=== PATIENT | female | born 1965 | race Caucasian/White ===

== ENCOUNTER 2019-03-01 08:58 | Inpatient (IN) ==
--- NOTE | 2019-02-20 15:02 | History & Physical Report ---
Date of Service February 20, 2019 Assessment & Plan (1) Loose total knee arthroplasty: Treatment options were discussed with the patient. Patient has a loose tibial component. Lab results are also concerning for possible infection, however Microgen analysis and cultures were negative. Patient would like to proceed with surgery. Risks, benefits and alternatives to surgery including but not limited to infection, DVT, pain, stiffness, need for revision surgery, damage to blood vessels, damage to nerves, PE, , were discussed with the patient and they wish to proceed . Plan will be for revision left total knee arthroplasty vs removal of total knee and placement of antibiotic spacer based on results of intraoperative studies and findings. All questions were answered. Surgery was originally scheduled for 09/04/18 but cancelled due to abnormal echo. She has since had multiple cardiac studies and has now been cleared for surgery. Surgery is now scheduled for 03/01/19. We may want to consider checking a H&H immediately post operative as patient has chronic anemia, most recent hemoglobin 8.6. She will follow up post operatively. DVT prophylaxis will be aspirin 81mg BID x 28 days. Patient plans to go home with home health services upon discharge from hospital. Encounter type: subsequent encounter Laterality: left Qualified Code(s): T84.033D - Mechanical loosening of internal left knee prosthetic joint, subsequent encounter History of Present Illness Chief Complaint: Left knee pain Primary Care Provider: Gerardo Sampson Patient is a 53 year old female with PMHx signficant for RA, anemia thought to be due to chronic disease, hx of rheumatic fever as a child who presents with left knee pain. She has prior history of left total knee arthroplasty. Her original post operative course was complicated by a disruption of her medial retinaculum requiring repair. She was doing well up until recently when she sustained a fall while at work. X-rays at that time were concerning for loosening of the tibial component. Subsequently a bone scan was ordered demonstrating loosening. Blood work was ordered to rule out infection. Her CRP and sed rate were both elevated, therefore knee aspiration was performed. Analysis was negative for infection. Treatment options were discussed and she would like to proceed with scheduled surgery. Surgery was delayed due to an abnormal echo. She has since been cleared to proceed with surgery. Patient denies headaches, sweats, fevers, chills, double vision, blurred vision, cough, sore throat, dysphagia, chest pain, sob, wheezing, n/v/d/c, numbness, tingling, fatigue, urinary symptoms, mood disorders. ROS positive for left knee pain and stiffness. 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 Unknown etiology of anemia. Cardiac murmur HX-RHEUMATIC FEVER AGE 14-MITRAL REGURGITATION ON ECHO 2014 [facility] PER PT-REPEAT ECHO/STRESS END 2017 [place] PER PT Hiatal hernia Osteoarthritis Rheumatoid arthritis Saw Dr Figueroa in the past, was previously on Prednisone but has since d/c'd. Surgical History History of appendectomy History of bilateral tubal ligation History of cardiac cath 11/2018 DUE TO "SHADOW, POOR DETECTION ON ECHO-EXCESS BREAST TISSUE CAUSED POOR VISIBILITY-CATHETERIZATION HEART [place] History of colonoscopy History of esophagogastroduodenoscopy (EGD) History of herniorrhaphy History of total knee replacement LEFT 2014 [facility], no complications, well tolerated Social History Preferred Language: Latvian Communication Ability: Effective Communication Equipment Mechanic Required: No Beliefs That Will Affect Care: None Current Living Situation: Spouse and Family Other Information That Helps Us Care for You: No Feels Safe at Home: Yes Safety Concerns: Feels Safe At This Time Smoking Status: Former smoker Do You Dip or Chew Tobacco: No Smoking End Date: QUIT 2015 Second Hand Exposure: Yes (ON OCC) Hx Alcohol Use: Yes (RARELY) Alcohol type: hard liquor Hx Substance Use: No Review of Systems All systems reviewed & are unremarkable except as noted in HPI & below Physical Exam Constitutional: well developed and well nourished; no acute distress Eyes: PERRL, conjunctivae normal, anicteric sclerae ENMT: external ear and nose normal, oropharynx normal Neck: trachea midline, no thyromegaly Respiratory: normal respiratory effort, lungs clear to auscultation Cardiovascular: RRR, no murmur, no edema Musculoskeletal: Left knee-Surgical scar well healed. Stable to valgus and varus stress. Tenderness along medial and lateral joint lines. ROM 5-120 degrees. Skin: no rashes, warm and dry Neurologic: patellar DTR's 2+ bilat, sensation intact Psychiatric: A+Ox3, euthymic affect Results & Data Laboratory Results CRP-2.55, sed rate-70, WBC-7.88, Gram stain-many polys, no organisms. Culture-no growth. Synovial fluid-44,832 WBC with 93% polys, 11036 RBC. Microgen analysis was negative for infection. Hemoglobin 8.6 and hematocrit 30.4 from 02/18/19. Diagnostic Findings X-RAY Knee 3 Views LT-S/p left TKA. Questionable lucency lateral tibial plateau and tibial stem. Patella is well seated. Hardware otherwise intact. Bone Scan: Abnormal signal of tibial component indicating septic vs aseptic loosening.
--- NOTE | 2019-02-27 09:04 | Anesthesiology Consultation ---
Date of Service February 27, 2019 Assessment & Plan (1) Encounter for pre-operative examination: - PCP: 12/26/18: Aware of anemia. S/P unremarkable workup including EGD/colonoscopy. "PATIENT CLEARED FOR SURGERY." HGB stable at 8.6 on 02/18/19 (was 8.7 on 08/25/18). - Discussed with Dr. Rosario RE: anemia. He recommends rechecking CBC AM DOS and having type and cross, 2 units PRBC's on hold for AM DOS. Chart Review Chart Review: Acceptable Risk for Surgery (pending labs AM DOS) History Surgery Operation Date: 03/01/19 11:15 Proposed Procedures p Left Total Knee Arthroplasty versus Removal of Total Knee Placement of Antibiotic Spacer - Khai Dow MD Height/Weight Height: 5 ft 2 in Weight: 95.254 kg Allergies Allergy/AdvReac Type Severity Reaction Status Date / Time levofloxacin Allergy Severe RESPIRATORY Verified 01/18/19 08:33 DISTRESS Medications Home Medications Medication Instructions Recorded Confirmed Last Taken acetaminophen [Tylenol Extra 1,000 mg PO Q6H PRN 08/14/18 01/18/19 Unknown Strength] ferrous sulfate 325 mg PO BID 08/14/18 01/18/19 Unknown Past Medical History Medical History DJD (degenerative joint disease) of knee Anemia S/P 3 UNITS 11/2017; CHRONIC ANEMIA WITH UNKNOWN ETIOLOGY S/P EXTENSIVE WORKUP INCLUDING EGD/COLOSCOPY Hiatal hernia Osteoarthritis Rheumatoid arthritis Past Surgical History Surgical History History of appendectomy History of bilateral tubal ligation History of cardiac cath 11/2018= NO STENTS; "ANGIOGRAPHICALLY NORMAL CORONARY ARTERIES" History of colonoscopy History of esophagogastroduodenoscopy (EGD) History of herniorrhaphy History of total knee replacement LEFT Social History Smoking Status: Former smoker Do You Dip or Chew Tobacco: No Smoking End Date: QUIT 2015 Hx Alcohol Use: Yes (RARELY) Alcohol type: hard liquor alcohol intake frequency: holidays/special occasions only Hx Substance Use: No substance use type: does not use Testing Laboratory Results 02/18/19 WBC 6.71 H/H 8.6/30.4 PLATELETS 371 SODIUM 140 POTASSIUM 4.1 CHLORIDE 109 CO2 24.0 BUN 7.8 CREATININE 1.04 GLUCOSE 91 PT 11.9 PTT 28.6 INR 1.06 UA negative nitrie, large leuk esterase, negative blood (surgeon aware) TYPE AND SCREEN A+Ab- Electrocardiogram Date: 10/23/18 NSR at 84bpm. Septal infarct, age undetermined. Subsequent cardiac cath done 11/2018* Echocardiogram Date: 08/28/18 EF 60%. No RWMA. AV/MV sclerotic. At least moderate HI identified with 2 separate jets of regurgitation. Mild TR/PI. Stress Test Date: 10/24/18 Type: nuclear (LEXISCAN) Abnormal myocardial perfusion SPECT images with evidence for pharmacologically induced anterolateral ischemia. LVEF 73%. Subsequent cardiac cath done 11/2018* Cardiac Catheterization Date: 11/23/18 Angiographically normal coronary arteries. EF 55%. Cervical Spine Date: 08/20/18 Findings: less than 5mm instability 1. 2 mm anterolisthesis C3 on C4 and C4 on C5 resolves with extension. Correlate clinically to assess for instability. 2. Predental interval appears normal. 3. Degenerative changes about.
[~2019-03-01 08:58] MED LIST: ACETAMINOPHEN 500 MG TAB PO SCH; BUPIVACAINE 0.5 % 5 MG/1 ML PF 10ML VIAL ONE; CEFAZOLIN 2000MG 2,000 MG/15 ML SYR IV SCH; CeleBREX 200 MG CAP PO SCH; FAMOTIDINE 20 MG TAB PO SCH; GABAPENTIN 300 MG PO SCH; METOCLOPRAMIDE HCL 10 MG TABLET PO SCH; ROPIVACAINE 0.5% 5 MG/ML 30 ML VIAL ONE; ROPIVACAINE 0.5% HCL/PF 150 MG, BUPIVACAINE 0.5% MPF 30 ML, EPINEPHrine 30MG/30ML (OR U... INFIL SCH; dexAMETHasone 4 MG TAB PO SCH
[2019-03-01] MEDS: LR 500ML BOLUS, THEN 15ML/HR IV SCH ×2 (09:18→12:49)
[2019-03-01 09:30] LABS: Hematocrit (blood only) 30.8 % (37-47); Mean Corpuscular Volume 67.8 fL (80-100); Mean Platelet Volume 10.5 fL (7.4-10.4); Platelet Count 313 K/uL (130-400); RDW Coefficient of Variation 16.7 % (11.5-14.5); RDW Standard Deviation 41.4 fL (36.4-46.3); Red Blood Count 4.54 M/uL (4.2-5.4); White Blood Count 7.31 K/uL (4.8-10.8)
--- NOTE | 2019-03-01 09:31 | History & Physical Bridge Note ---
Date of Service March 01, 2019 History & Physical Bridge Note I have examined the patient, reviewed the History & Physical and in the interval since the performance of the History & Physical I have noted the following changes of clinical significance: no changes noted
[2019-03-01 09:47] LABS: Mean Corpuscular Hgb Conc 29.2 g/dL (32-36)
[2019-03-01] MEDS ORDERED: KETAMINE HCL INJ 50 MG/ML 10 ML VIAL ONE ×2 (10:20→15:30)
[2019-03-01] MEDS ORDERED: MIDAZOLAM HCL 1 MG/ML 2ML VIAL ONE ×2 (10:20→12:49)
--- NOTE | 2019-03-01 12:28 | Anesthesiology Progress Note ---
Date of Service March 01, 2019 Anesthesia Post Procedure Vital Signs Vital Signs: Temp Pulse Resp BP Pulse Ox 03/01/19 09:21 36.7 C 89 20 143/96 H 97 Pain Intensity Left Knee: Pain Intensity: 7 Transfer of Care Handoff Completed per policy Notes Mental Status: alert / awake / arousable and participated in evaluation Patient Amnestic to Procedure: Yes Nausea / Vomiting: adequately controlled Pain: adequately controlled Airway Patency, RR, SpO2: stable & adequate BP & HR: stable & adequate Hydration State: stable & adequate Anesthetic Complications: no major complications apparent
[2019-03-01] MEDS ORDERED: POVIDONE-IODINE OP SOLN 30 ML BTL ONE (13:16)
[2019-03-01] MEDS ORDERED: ORTHO JOINT ANESTHETIC ONE (13:16)
[2019-03-01] MEDS ORDERED: BACITRACIN INJ 50,000 UNIT VIAL ONE (13:16)
[2019-03-01] MEDS ORDERED: GLYCOPYRROLATE 0.2 MG/ML VIAL ONE (13:55)
[2019-03-01] MEDS ORDERED: LIDOCAINE HCL 2% 2 ML VIAL/AMP(20MG/ML) INFIL ONE (13:55)
[2019-03-01] MEDS ORDERED: ONDANSETRON INJ 2 MG/ML 2 ML VIAL ONE (13:55)
[2019-03-01] MEDS ORDERED: DEXAMETHASONE SOD INJ 4 MG/ML VIAL ONE (13:55)
[2019-03-01] MEDS ORDERED: PROPOFOL IV EMULSION 10 MG/ML 20 ML VIAL IV ONE ×3 (13:55→15:34)
[2019-03-01] MEDS ORDERED: HYDROmorphone INJ 2 MG/ML SYR/VIAL ONE (15:29)
--- NOTE | 2019-03-01 16:12 | Post Operative Brief Note ---
Immediate Post Op Note v1 Date of Surgery March 01, 2019 Pre & Post Diagnosis Operation Date: 03/01/19 11:15 Pre-Op Diagnosis: Left Knee Mechanical loosening of other internal part Post-Op Diagnosis: Left Knee Mechanical loosening of other internal part Procedure Operation Date: 03/01/19 11:15 Actual Procedures p Left Total Knee Revision Arthroplasty (Left) - Khai Dow MD Surgeon Kirk Maher DO Senior Director Marketing Khai Dow MD, Dakota Blackwell PA-C Estimated Blood Loss 50 Findings Consistent with Post-Op Diagnosis Specimens fresh frozen x 3 (suprapatellar, anterior tibia, proximal tibia culture tissue x 1 synovium culture fluid x 1 synovial Drains Hemovac Drain Anesthesia Type General Complications none Disposition Disposition: Recovery Room Overlapping Procedure I was present for: the critical portions of procedure. I was immediately available: during the entire case. Back up surgeon: was not required during procedure.
--- NOTE | 2019-03-01 16:49 | Operative Report ---
Post Operative Report Pre & Post Diagnosis Operation Date: 03/01/19 11:15 Pre-Op Diagnosis: Left Knee Mechanical loosening of other internal part Post-Op Diagnosis: Left Knee Mechanical loosening of other internal part Procedure Operation Date: 03/01/19 11:15 Actual Procedures p Left Total Knee Revision Arthroplasty (Left) - Khai Dow MD Surgeon Kirk Maher DO Oil Distributor Tender Khai Dow MD, Daokta Blackwell PA-C Estimated Blood Loss 50 Findings Consistent with Post-Op Diagnosis Specimens fresh frozen x 3 (suprapatellar, anterior tibia, proximal tibia culture tissue x 1 synovium culture fluid x 1 synovial Drains Hemovac drain deep to fascia Anesthesia Type General Indications Patient is a 53 year old female with PMHx signficant for RA, anemia thought to be due to chronic disease, hx of rheumatic fever as a child who presents with left knee pain. She has prior history of left total knee arthroplasty. Her original post operative course was complicated by a disruption of her medial retinaculum requiring repair. She was doing well up until recently when she sustained a fall while at work. X-rays at that time were concerning for loosening of the tibial component. Subsequently a bone scan was ordered demonstrating loosening. Blood work was ordered to rule out infection. Her CRP and sed rate were both elevated, therefore knee aspiration was performed. Analysis was negative for infection. Treatment options were discussed and she would like to proceed with scheduled surgery. Surgery was delayed due to an abnormal echo. She has since been cleared to proceed with surgery. Patient denies headaches, sweats, fevers, chills, double vision, blurred vision, cough, sore throat, dysphagia, chest pain, sob, wheezing, n/v/d/c, numbness, tingling, fatigue, urinary symptoms, mood disorders. ROS positive for left knee pain and stiffness. Treatment options were discussed with the patient. Patient has a loose tibial component. Lab results are also concerning for possible infection, however Microgen analysis and cultures were negative. Patient would like to proceed with surgery. Risks, benefits and alternatives to surgery including but not limited to infection, DVT, pain, stiffness, need for revision surgery, damage to blood vessels, damage to nerves, PE, , were discussed with the patient and they wish to proceed . Plan will be for revision left total knee arthroplasty vs removal of total knee and placement of antibiotic spacer based on results of intraoperative studies and findings. All questions were answered. Surgery was originally scheduled for 09/04/18 but cancelled due to abnormal echo. She has since had multiple cardiac studies and has now been cleared for surgery. Surgery is now scheduled for 03/01/19. We may want to consider checking a H&H immediately post operative as patient has chronic anemia, most recent hemoglobin 8.6. She w ill follow up post operatively. DVT prophylaxis will be aspirin 81mg BID x 28 days. Patient plans to go home with home health services upon discharge from hospital. Description of Procedure Components used: Legion Revision Knee System: Tibial tray size 4, 120mm stem with 6mm offset, 10mm augment plate, size 12 PS tibial insert. Following induction of general anesthesia, a tourniquet was applied to the proximal aspect of the thigh and the patient's left leg was prepped and draped in the usual sterile manner. A timeout was performed, patient identified and and site kelsey verified. Anesthesia confirmed preoperative antibiotics given. The limb was exsanguinated with an esmarch bandage and tourniquet was inflated to 300 mmHg. The prior incision was identified and a longitudinal midline incision was made over the anterior knee. Previous surgical scar was excised. Subcutaneous tissue was sharply dissected down to fascia. Electrocautery was used for hemostasis. Next a medial parapatellar arthrotomy was performed. A culture of synovial fluid was obtained. Meticulous removal of hypertrophic synovium and scar tissue was removed with Bovie. Synovial tissue samples were sent for fresh frozen analysis and for cultures. The patella was subluxed laterally and the knee was flexed. A lindo retractor was used to expose the synovium above on the anterior aspect of the femur and removed down to bone and sent for fresh frozen analysis. Next, the anterior fat pad was removed to aid in visualization. The medial face of the tibia was cleared of soft tissue first with a bovie and a bo elevator. Tissue sample sent for fresh frozen analysis from anterior tibia. The remaining tissue was retracted posteriorly using a blunt hohmann. Once adequate visualization of the components was obtained the femur component was assessed carefully and found to be stable and well fixed. Next we turned our attention to the proximal tibia which was grossly loose. Utilizing the microsagittal saw the tibial component and cement interface was further disrupted followed by flexible osteotomes. Utilizing to flat wide osteotomes we were able to lever the component out of the bone. Once again there was minimal bone loss. Next we meticulously removed remaining cement and cleared the distal femur proximal tibia and any remaining soft tissue. Tissue sample was sent for fresh frozen analysis. A cleanup cut of the proximal tibia was performed by hand removing minimal bone until there was a flat cut perpendicular to the me chanical axis. We confirmed the cut with drop tyra and spacer block. Next, we gained access to the intramedullary canal of the tibia and intramedullary membrane removed with curved curettes. Next sequential intramedullary reaming was performed by hand until adequate bone chatter was appreciated. Reaming was stopped at 18 mm at a depth of 120mm. At this time the tourniquet was dropped at 60 minutes. The intramedullary reamer was left in the tibia and the T-handle was removed. The appropriate tibia size and rotation was selected and a size 4 tibial plate was pinned into place with appropriate rotation. A 6mm offset bushing was selected and placed over the IM guide in the 6:30 position. The IM reamer was removed and preparation of the tibia was completed utilizing the matching prox imal tibial counterbore reamer. The tibia tray and bushing were removed and bullet tipped IM guide placed in the canal. Final tibial counterbore reamer passed down over the bullet tipped IM guide till fully seated. IM guide was removed at this time and the trial size 4 tibia with 6 mm offset 120 mm stem with 10 medial and lateral augments were attached to the proximal tibia and impacted into place. This provided good fit and fill of the proximal tibia. A 12mm PS tibial articular surface was selected and inserted into place. Stability was assessed at full extension and all degrees of flexion, vargus/valgus, anterior/posterior. The 12mm PS articular surface provided excellent stability to the knee. Fresh frozen sections were returned less than 5 per HPF. Access was gained to the patella and meticulous removal of fibrous soft tissue surrounding the patella button. The patella was cleared of any remaining osteophytes utilizing the rongour. The patella button was found to be stable and well fixed without signs of wear. The knee was found to be well balanced, well aligned, with excellent patellar tracking. The leg was rewrapped with new Esmarch and tourniquet inflated once again at this time. The trial components were removed and final components were obtained and assembled on the back table. Orthomix solution injected into the posterior capsule. The knee was irrigated with copious amounts of sterile saline solution mixed with bacitracin. Access to the proximal tibia was once again obtained utilizing two bent hohmann retractors and the proximal tibia and distal femur were dried with lap sponges. The final components were cemented into place utilizing antibiotic cement and all excess cement was removed. A trial tibial articular surface was placed while cemented hardened. Knee stability was once again assessed and the final component inserted. The knee was injected with the remaining Orthomix solution and irrigated once more with sterile saline solution mixed with bacitracin. Hemovac drains 2 were inserted deep to the capsule. The capsulotomy was closed with #1 Vicryl followed by subcutaneous closure with 2-0 Vicryl suture. Skin closure was performed using shreyas, sterile dressings were applied which included Acticoat and ioana negative pressure incisional VAC. The patient was extubated in the OR and transported to the PACU in stable condition. Due to the complex nature of the procedure, the entire surgery was performed with the operational assistance of Khai Dow MD, Dakota Blackwell PA-C. The malt specifications control assistant, under direct supervision, was involved in the actual performance of all aspects of the surgical procedure including patient positioning, hemostasis, tissue retraction, instrument management and wound closure. I attest to the content of the Intraoperative Record and any orders documented therein. Any exceptions are noted below.
[2019-03-01] MEDS ORDERED: fentaNYL citrate 100 MCG/2 ML VIAL IV PRN (17:06)
[2019-03-01] MEDS ORDERED: ONDANSETRON INJ 2 MG/ML 2 ML VIAL IV PRN ×2 (17:06→18:01)
[2019-03-01] MEDS ORDERED: ePHEDrine sulfate 50 MG/ML AMP IV PRN (17:06)
[2019-03-01] MEDS ORDERED: ATROPINE SULFATE 0.1 MG/ML 10ML SYR IV PRN (17:06)
[2019-03-01] MEDS ORDERED: HYDROmorphone INJ 1 MG/ML SYRINGE IV PRN (17:06)
[2019-03-01] MEDS ORDERED: fentaNYL citrate 100 MCG/2 ML VIAL ONE (17:10)
--- NOTE | 2019-03-01 17:29 | Anesthesiology Progress Note ---
Date of Service March 01, 2019 Anesthesia Post Procedure Vital Signs Vital Signs: Temp Pulse Pulse Resp BP Pulse Ox 03/01/19 17:25 84 15 143/83 H 99 03/01/19 17:15 98 H 14 169/89 H 96 03/01/19 17:05 103 H 20 177/112 H 100 03/01/19 16:56 36.9 C 104 H 15 150/102 H 100 03/01/19 13:35 66 18 116/60 100 03/01/19 13:32 60 18 125/61 100 03/01/19 13:29 60 20 80/42 L 99 03/01/19 09:21 36.7 C 89 20 143/96 H 97 Pain Intensity Left Knee: Pain Intensity: 2 Transfer of Care Handoff Completed per policy Notes Mental Status: alert / awake / arousable and participated in evaluation Patient Amnestic to Procedure: Yes Nausea / Vomiting: adequately controlled Pain: adequately controlled Airway Patency, RR, SpO2: stable & adequate BP & HR: stable & adequate Hydration State: stable & adequate Neuraxial Anesthesia: was administered and sensory block is resolving Anesthetic Complications: no major complications apparent and Pt Satisfied with anesthetic care
--- NOTE | 2019-03-01 17:31 | XRay Report ---
XR knee LT 2V routine CLINICAL HISTORY: Surgical Post Op COMPARISON: 09/09/2015 DISCUSSION: Evidence for interval revision of the patient's total left knee arthroplasty. Good contac t between the revision, components and underlying bone. Soft tissue changes unremarkable in a postoperative patient. The 10th IMPRESSION: Anatomic alignment post revision procedure of a total left knee arthroplasty. The above report was generated using voice recognition software. It may contain grammatical, syntax or spelling errors. Electronically signed by: Chase Ferrara M.D. 03/01/2019 5:29 PM
[2019-03-01] MEDS ORDERED: METOCLOPRAMIDE HCL INJ 5 MG/ML 2 ML VIAL IV PRN (18:01)
[2019-03-01] MEDS ORDERED: NALOXONE HCL 0.4 MG/1 ML VIAL/CARP IV PRN (18:01)
[2019-03-01] MEDS ORDERED: HYDROmorphone INJ 0.5 MG/0.5 ML SYR IV PRN (18:01)
[2019-03-01] MEDS ORDERED: BISACODYL 10 MG SUPP PR PRN (18:01)
[2019-03-01] MEDS ORDERED: MAGNESIUM HYDROXIDE SUSP 30 ML UDC PO PRN (18:01)
[2019-03-01] MEDS ORDERED: SODIUM CHLORIDE 0.9% 1000ML 1,000 ML IV SCH (18:01)
[2019-03-01 19:28] LABS: Hematocrit (blood only) 28.8 % (37-47); Hemoglobin 8.3 g/dL (12.0-16.0); Mean Corpuscular Hgb Conc 28.8 g/dL (32-36); Mean Corpuscular Volume 68.2 fL (80-100); Mean Platelet Volume 10.1 fL (7.4-10.4); Platelet Count 281 K/uL (130-400); RDW Coefficient of Variation 16.6 % (11.5-14.5); RDW Standard Deviation 40.7 fL (36.4-46.3); Red Blood Count 4.22 M/uL (4.2-5.4); White Blood Count 10.77 K/uL (4.8-10.8)
[2019-03-01 19:34] LABS: Basophils # (auto) 0.01 K/uL (0-0.2); Basophils % (auto) 0.1 %; Eosinophils # (auto) 0.01 K/uL (0-0.5); Eosinophils % (auto) 0.1 %; Hypochromasia Present; Immature Granulocytes # (auto) 0.01 K/uL (0.00-0.02); Immature Granulocytes % (auto) 0.1 %; Lymphocytes % (auto) 3.7 %; Microcytosis Present; Monocytes # (auto) 0.17 K/uL (0.11-0.59); Monocytes % (auto) 1.6 %; Neutrophils # (auto) 10.17 K/uL (1.4-6.5); Neutrophils % (auto) 94.4 %; Polychromasia 1+
[2019-03-01] MEDS: OXYCODONE HCL IR 5 MG TAB (IMMEDIATE RELEASE) PO PRN (20:41)
[2019-03-01] MEDS: FERROUS SULFATE 325 MG TAB PO SCH (20:42)
[2019-03-01] MEDS: DOCUSATE SODIUM 100 MG CAP PO SCH (20:42)
[2019-03-01] MEDS: CEFAZOLIN 2000MG 2,000 MG/15 ML SYR IV SCH (20:42)
[2019-03-01] MEDS: CeleBREX 200 MG CAP PO SCH (20:42)
[2019-03-01] MEDS: SENNA 8.6 MG TAB PO SCH (20:42)
[2019-03-01] MEDS: ACETAMINOPHEN 500 MG TAB PO SCH (20:42)
[2019-03-01] MEDS: ASPIRIN 81 MG ECTAB PO SCH (20:42)
[2019-03-02] MEDS: ACETAMINOPHEN 500 MG TAB PO SCH ×3 (05:37→21:13)
[2019-03-02] MEDS: OXYCODONE HCL IR 5 MG TAB (IMMEDIATE RELEASE) PO PRN ×3 (05:37→20:25)
[2019-03-02] MEDS: CEFAZOLIN 2000MG 2,000 MG/15 ML SYR IV SCH (05:39)
[2019-03-02 06:21] LABS: Hematocrit (blood only) 23.8 % (37-47); Mean Corpuscular Hgb Conc 29.4 g/dL (32-36); Mean Corpuscular Volume 67.8 fL (80-100); Mean Platelet Volume 10.4 fL (7.4-10.4); Platelet Count 214 K/uL (130-400); RDW Coefficient of Variation 16.5 % (11.5-14.5); Red Blood Count 3.51 M/uL (4.2-5.4); White Blood Count 9.33 K/uL (4.8-10.8)
[2019-03-02 06:41] LABS: BUN Creatinine Ratio 13.3 (10-20); Calcium 8.1 mg/dl (8.5-10.1); Creatinine Clr Calc Pharmacy 80.5 ml/min; Est GFR (African American) 85.2; Est GFR (Non-African American) 73.5; Potassium 4.3 mmol/L (3.5-5.1)
[2019-03-02] MEDS ORDERED: SODIUM CHLORIDE 0.9% 250 ML IV PRN (08:21)
--- NOTE | 2019-03-02 08:37 | Orthopedic Progress Note ---
Date of Service March 02, 2019 Assessment & Plan (1) DJD (degenerative joint disease) of knee: PT/OT ASA, SCDs, DVT prophylaxis 1 unit PRBC today H/H 7.0/23.8 She notes she sometimes needs transfusions with her anemia Recheck tomorrow. Cefadroxil 2 weeks on DC Subjective s/p POD #1 Left tka revision arthroplasty. doing well, no complaints. No sob, cp, dizziness, lightheaded Review of Systems Cardiovascular: no chest pain, no dyspnea and no lightheadedness Physical Exam Physical Exam: Toes mobile, NVI. Calves soft, non tender. Dressing in place. drain in place. Tolu wound vac Results & Data Vital Signs (Past 12 Hours) Vital Signs Temp Pulse Resp BP Pulse Ox 03/02/19 07:33 36.4 C L 60 16 117/78 100 03/02/19 03:58 36.4 C L 66 16 106/70 99 03/01/19 23:25 36.5 C 69 18 130/80 100 03/01/19 20:47 36.1 C L 83 16 128/81 98 Laboratory Results H/H 7.0/23.8
[2019-03-02] MEDS ORDERED: ACETAMINOPHEN 325 MG TAB PO SCH (08:45)
[2019-03-02] MEDS ORDERED: DiphenhydrAMINE HCL 50 MG/ML VIAL IV SCH (08:45)
[2019-03-02] MEDS: MULTIVITAMIN TAB PO SCH (08:47)
[2019-03-02] MEDS: ASPIRIN 81 MG ECTAB PO SCH ×2 (08:47→20:27)
[2019-03-02] MEDS: FERROUS SULFATE 325 MG TAB PO SCH ×2 (08:47→20:28)
[2019-03-02] MEDS: DOCUSATE SODIUM 100 MG CAP PO SCH ×2 (08:47→20:27)
[2019-03-02] MEDS: CeleBREX 200 MG CAP PO SCH ×2 (08:48→20:27)
--- NOTE | 2019-03-02 11:27 | Anesthesiology Progress Note ---
Date of Service March 02, 2019 Anesthesia Post Procedure Vital Signs Vital Signs: Temp Pulse Pulse Pulse Resp BP BP 03/02/19 10:35 36.3 C L 66 16 116/76 03/02/19 10:05 36.4 C L 70 16 110/70 03/02/19 09:35 36.4 C L 72 16 101/62 03/02/19 09:20 36.4 C L 63 16 117/75 03/02/19 09:04 36.6 C 58 L 18 130/79 03/02/19 07:33 36.4 C L 60 16 117/78 03/02/19 03:58 36.4 C L 66 16 106/70 03/01/19 23:25 36.5 C 69 18 130/80 03/01/19 20:47 36.1 C L 83 16 128/81 03/01/19 20:02 71 16 120/80 03/01/19 18:51 36.9 C 77 16 136/84 03/01/19 18:21 85 16 124/82 03/01/19 17:50 36.6 C 91 H 16 142/81 H 03/01/19 17:35 36.5 C 88 16 150/79 H 03/01/19 17:25 84 15 143/83 H 03/01/19 17:15 98 H 14 169/89 H 03/01/19 17:05 103 H 20 177/112 H 03/01/19 16:56 36.9 C 104 H 15 150/102 H 03/01/19 13:35 66 18 116/60 03/01/19 13:32 60 18 125/61 03/01/19 13:29 60 20 80/42 L Pulse Ox 03/02/19 10:35 100 03/02/19 10:05 99 03/02/19 09:35 100 03/02/19 09:20 99 03/02/19 09:04 03/02/19 07:33 100 03/02/19 03:58 99 03/01/19 23:25 100 03/01/19 20:47 98 03/01/19 20:02 98 03/01/19 18:51 95 03/01/19 18:21 95 03/01/19 17:50 99 03/01/19 17:35 100 03/01/19 17:25 99 03/01/19 17:15 96 03/01/19 17:05 100 03/01/19 16:56 100 03/01/19 13:35 100 03/01/19 13:32 100 03/01/19 13:29 99 Pain Intensity Left Knee: Pain Intensity: 2 Transfer of Care Handoff Completed per policy Notes Mental Status: alert / awake / arousable and participated in evaluation Nausea / Vomiting: adequately controlled Pain: improving with treatment Airway Patency, RR, SpO2: stable & adequate BP & HR: stable & adequate Hydration State: stable & adequate Neuraxial Anesthesia: was administered and sensory block resolved Anesthetic Complications: no major complications apparent and Pt Satisfied with anesthetic care
[2019-03-02] MEDS: SENNA 8.6 MG TAB PO SCH (20:28)
[2019-03-03] MEDS: OXYCODONE HCL IR 5 MG TAB (IMMEDIATE RELEASE) PO PRN ×3 (01:43→12:32)
[2019-03-03 05:50] LABS: Basophils # (auto) 0.06 K/uL (0-0.2); Basophils % (auto) 0.7 %; Eosinophils # (auto) 0.09 K/uL (0-0.5); Eosinophils % (auto) 1.1 %; Hematocrit (blood only) 24.8 % (37-47); Hemoglobin 7.6 g/dL (12.0-16.0); Immature Granulocytes # (auto) 0.02 K/uL (0.00-0.02); Immature Granulocytes % (auto) 0.2 %; Lymphocytes # (auto) 2.33 K/uL (1.2-3.4); Lymphocytes % (auto) 28.6 %; Mean Corpuscular Hgb Conc 30.6 g/dL (32-36); Mean Corpuscular Volume 69.3 fL (80-100); Mean Platelet Volume 9.6 fL (7.4-10.4); Monocytes # (auto) 0.95 K/uL (0.11-0.59); Monocytes % (auto) 11.6 %; Neutrophils # (auto) 4.71 K/uL (1.4-6.5); Neutrophils % (auto) 57.8 %; Platelet Count 196 K/uL (130-400); RDW Coefficient of Variation 17.8 % (11.5-14.5); RDW Standard Deviation 44.5 fL (36.4-46.3); Red Blood Count 3.58 M/uL (4.2-5.4); White Blood Count 8.16 K/uL (4.8-10.8)
[2019-03-03] MEDS: ACETAMINOPHEN 500 MG TAB PO SCH (06:09)
[2019-03-03 06:20] LABS: Hypochromasia Present; Microcytosis Present
[2019-03-03] MEDS: MULTIVITAMIN TAB PO SCH (08:25)
[2019-03-03] MEDS: CeleBREX 200 MG CAP PO SCH (08:25)
[2019-03-03] MEDS: DOCUSATE SODIUM 100 MG CAP PO SCH (08:25)
[2019-03-03] MEDS: ASPIRIN 81 MG ECTAB PO SCH (08:25)
[2019-03-03] MEDS: FERROUS SULFATE 325 MG TAB PO SCH (08:25)
--- NOTE | 2019-03-03 08:55 | Orthopedic Progress Note ---
Date of Service March 03, 2019 Assessment & Plan (1) DJD (degenerative joint disease) of knee: PT/OT ASA, SCDs, DVT prophylaxis 1 unit PRBC H/H 7.0/23.8 increased to 7.6/24.8 from yesterday She notes she sometimes needs transfusions with her anemia Cefadroxil 2 weeks on DC She would like to be discharged today Subjective she feels a little better since receiving a unit of blood, a little more energy But no SOB, CP, dizziness, lightheaded Review of Systems Cardiovascular: no chest pain, no dyspnea, no lightheadedness and no calf pain Physical Exam Physical Exam: Toes mobile, NVI. Calves soft, non tender. JAEL wound vac in place. Results & Data Vital Signs (Past 12 Hours) Vital Signs Temp Pulse Resp BP Pulse Ox 03/03/19 07:52 36.6 C 61 16 132/84 97 03/02/19 23:11 37.1 C 61 16 146/81 H 100
--- NOTE | 2019-03-04 21:34 | Discharge Summary ---
Date of Service March 04, 2019 Admission HPI Per Admitting Provider Patient is a 53 year old female with PMHx signficant for RA, anemia thought to be due to chronic disease, hx of rheumatic fever as a child who presents with left knee pain. She has prior history of left total knee arthroplasty. Her original post operative course was complicated by a disruption of her medial retinaculum requiring repair. She was doing well up until recently when she sustained a fall while at work. X-rays at that time were concerning for loosening of the tibial component. Subsequently a bone scan was ordered demonstrating loosening. Blood work was ordered to rule out infection. Her CRP and sed rate were both elevated, therefore knee aspiration was performed. Analysis was negative for infection. Treatment options were discussed and she would like to proceed with scheduled surgery. Surgery was delayed due to an abnormal echo. She has since been cleared to proceed with surgery. Patient denies headaches, sweats, fevers, chills, double vision, blurred vision, cough, sore throat, dysphagia, chest pain, sob, wheezing, n/v/d/c, numbness, tingling, fatigue, urinary symptoms, mood disorders. ROS positive for left knee pain and stiffness. Admission Exam Per Admitting Provider Constitutional: well developed and well nourished; no acute distress Eyes: PERRL, conjunctivae normal, anicteric sclerae ENMT: external ear and nose normal, oropharynx normal Neck: trachea midline, no thyromegaly Respiratory: normal respiratory effort, lungs clear to auscultation Cardiovascular: RRR, no murmur, no edema Musculoskeletal: Left knee-Surgical scar well healed. Stable to valgus and varus stress. Tenderness along medial and lateral joint lines. ROM 5-120 degrees. Skin: no rashes, warm and dry Neurologic: patellar DTR's 2+ bilat, sensation intact Psychiatric: A+Ox3, euthymic affect Principal Diagnosis Left total knee loosening, anemia Discharge Exam Constitutional well developed and well nourished; no acute distress Eyes PERRL, conjunctivae normal, anicteric sclerae ENMT external ear and nose normal, oropharynx normal Neck trachea midline, no thyromegaly Respiratory normal respiratory effort, lungs clear to auscultation Cardiovascular RRR, no murmur, no edema Skin no rashes, warm and dry Neurologic patellar DTR's 2+ bilat, sensation intact Psychiatric A+Ox3, euthymic affect Discharge Data Allergies Allergy/AdvReac Type Severity Reaction Status Date / Time levofloxacin Allergy Severe RESPIRATORY Verified 03/01/19 09:16 DISTRESS Consultations 03/01/19 18:01 Consult Case Management - Discharge Planning Routine Procedures Performed Operation Date: 03/01/19 11:15 Actual Procedures p Left Total Knee Revision Arthroplasty (Left) - Khai Dow MD Ordered Studies 03/01/19 05:00 US - OR guided needle placemen Routine Hospital Course (1) Loosening of prosthesis of left total knee replacement: Patient presented for same day admission following left total knee arthroplasty revision on 03/01/19. She tolerated procedure well. Intraoperative high powered field analysis was completed and did not show signs of septic total knee. the tibial component was revised due to loosening. Post-operatively, her activity was progressed and well tolerated. They participated in PT with ambulation distance of 150 feet. ROM of operative knee reached 100 degrees. On POD#1 her hemoglobin dropped to 7.0 down from 9 preoperatively and 8.3 on POD#0. She did receive 1 unit of blood on POD#1. On POD#2 hemoglobin was at 7.6. Pain controlled on oral medications. Preliminary results of intraoperative cultures have shown no growth as of 03/04/19. Please refer to daily progress notes and PT notes for complete details. After exam on 03/03/19, patient was felt to be stable for discharge home with home health PT. Patient will f/u in the office in about 2 weeks for further evaluation including x-rays and incision check, sooner if having any issues or concerns. Lab Results 02/22/19 03/01/19 03/01/19 Range/Units 09:44 09:14 09:19 WBC 7.31 (4.8-10.8) K/uL RBC 4.54 (4.2-5.4) M/uL Hgb 9.0 L (12.0-16.0) g/dL Hct 30.8 L (37-47) % MCV 67.8 L (80-100) fL MCH 19.8 L (25-34) pg MCHC 29.2 L (32-36) g/dL RDW Std Deviation 41.4 (36.4-46.3) fL RDW Coeff of Celine 16.7 H (11.5-14.5) % Plt Count 313 (130-400) K/uL MPV 10.5 H (7.4-10.4) fL Immature Gran % (Auto) % Neut % (Auto) % Lymph % (Auto) % Crawford % (Auto) % Eos % (Auto) % Baso % (Auto) % Immature Gran # (Auto) (0.00-0.02) K/uL Neut # (Auto) (1.4-6.5) K/uL Lymph # (Auto) (1.2-3.4) K/uL Crawford # (Auto) (0.11-0.59) K/uL Eos # (Auto) (0-0.5) K/uL Baso # (Auto) (0-0.2) K/uL Polychromasia Hypochromasia Microcytosis Sodium (136-145) mmol/L Potassium (3.5-5.1) mmol/L Chloride (98-107) mmol/L Carbon Dioxide (21-32) mmol/L Anion Gap (3-11) BUN (7-18) mg/dl Creatinine (0.6-1.2) mg/dl Est Cr Clr Drug Dosing ml/min Est GFR ( Amer) Est GFR (Non-Af Amer) BUN/Creatinine Ratio (10-20) Glucose (70-99) mg/dl Calcium (8.5-10.1) mg/dl Blood Type A Positive A Positive Antibody Screen NEGATIVE NEGATIVE Crossmatch See Detail 03/01/19 03/02/19 03/02/19 Range/Units 18:20 05:18 05:18 WBC 10.77 9.33 (4.8-10.8) K/uL RBC 4.22 3.51 L (4.2-5.4) M/uL Hgb 8.3 L 7.0 L (12.0-16.0) g/dL Hct 28.8 L 23.8 L (37-47) % MCV 68.2 L 67.8 L (80-100) fL MCH 19.7 L 19.9 L (25-34) pg MCHC 28.8 L 29.4 L (32-36) g/dL RDW Std Deviation 40.7 41.0 (36.4-46.3) fL RDW Coeff of Celine 16.6 H 16.5 H (11.5-14.5) % Plt Count 281 214 (130-400) K/uL MPV 10.1 10.4 (7.4-10.4) fL Immature Gran % (Auto) 0.1 % Neut % (Auto) 94.4 % Lymph % (Auto) 3.7 % Crawford % (Auto) 1.6 % Eos % (Auto) 0.1 % Baso % (Auto) 0.1 % Immature Gran # (Auto) 0.01 (0.00-0.02) K/uL Neut # (Auto) 10.17 H (1.4-6.5) K/uL Lymph # (Auto) 0.40 L (1.2-3.4) K/uL Crawford # (Auto) 0.17 (0.11-0.59) K/uL Eos # (Auto) 0.01 (0-0.5) K/uL Baso # (Auto) 0.01 (0-0.2) K/uL Polychromasia 1+ Hypochromasia Present Microcytosis Present Sodium 138 (136-145) mmol/L Potassium 4.3 (3.5-5.1) mmol/L Chloride 108 H (98-107) mmol/L Carbon Dioxide 26 (21-32) mmol/L Anion Gap 4.0 (3-11) BUN 12 (7-18) mg/dl Creatinine 0.90 (0.6-1.2) mg/dl Est Cr Clr Drug Dosing 80.5 ml/min Est GFR ( Amer) 85.2 Est GFR (Non-Af Amer) 73.5 BUN/Creatinine Ratio 13.3 (10-20) Glucose 118 H (70-99) mg/dl Calcium 8.1 L (8.5-10.1) mg/dl Blood Type Antibody Screen Crossmatch 03/03/19 Range/Units 05:28 WBC 8.16 (4.8-10.8) K/uL RBC 3.58 L (4.2-5.4) M/uL Hgb 7.6 L (12.0-16.0) g/dL Hct 24.8 L (37-47) % MCV 69.3 L (80-100) fL MCH 21.2 L (25-34) pg MCHC 30.6 L (32-36) g/dL RDW Std Deviation 44.5 (36.4-46.3) fL RDW Coeff of Celine 17.8 H (11.5-14.5) % Plt Count 196 (130-400) K/uL MPV 9.6 (7.4-10.4) fL Immature Gran % (Auto) 0.2 % Neut % (Auto) 57.8 % Lymph % (Auto) 28.6 % Crawford % (Auto) 11.6 % Eos % (Auto) 1.1 % Baso % (Auto) 0.7 % Immature Gran # (Auto) 0.02 (0.00-0.02) K/uL Neut # (Auto) 4.71 (1.4-6.5) K/uL Lymph # (Auto) 2.33 (1.2-3.4) K/uL Crawford # (Auto) 0.95 H (0.11-0.59) K/uL Eos # (Auto) 0.09 (0-0.5) K/uL Baso # (Auto) 0.06 (0-0.2) K/uL Polychromasia Hypochromasia Present Microcytosis Present Sodium (136-145) mmol/L Potassium (3.5-5.1) mmol/L Chloride (98-107) mmol/L Carbon Dioxide (21-32) mmol/L Anion Gap (3-11) BUN (7-18) mg/dl Creatinine (0.6-1.2) mg/dl Est Cr Clr Drug Dosing ml/min Est GFR ( Amer) Est GFR (Non-Af Amer) BUN/Creatinine Ratio (10-20) Glucose (70-99) mg/dl Calcium (8.5-10.1) mg/dl Blood Type Antibody Screen Crossmatch Total Time Total Time Spent Total Time Spent (In Minutes): 20 Discharge Plan Discharge Items Patient Disposition: Home - Home Health Services Reason For Visit: LEFT KNEE MECHANICAL LOOSENING OF OTHER INTERNAL P Discharge Diagnosis: s/p left TKA revision arthroplasty Condition: Good Discharge Goals: Decrease discomfort, Improve function, Increase independence and Therapeutic intervention Activity: Per 'Additional Instructions' section Non-emergency contact: Surgeon Call non-emergency contact if: you have any medication questions, your pain is not controlled, you have a fever, your temperature is above 101, your wound has increased redness and your wound has increased drainage Follow-up/Referrals: Gerardo Sampson M.D. [Primary Care Provider] - Diet: Regular Addtl Provider Instructions: ACTIVITY RECOMMENDATIONS: SELF CARE INSTRUCTIONS AFTER TOTAL KNEE REPLACEMENT A. You may need to continue a physical therapy program after discharge from the hospital. There are several options available to you. Your doctor will assist you in selecting the best one for you. 1. An out-patient facility 2 to 3 times a week for therapy or home therapy. 2. Continue working on all exercises taught to you in the hospital. Your goals should be to increase bending of your knee to 90 degrees and beyond and to fully straighten your knee. B. You may progress at your own pace from walking with a walker or crutches to a cane; then to no assistive devices. C. Make walking a part of your daily routine. Be up as much as comfortable with rest periods throughout the day. Rest with leg elevation is very important. Use the ice wrap frequently for the first 3-4 weeks. D. There are no restrictions on activities. You may ride in a car, shop, participate in cracker sprayer and all social activities. E. Wear the long elastic stockings (SONDRA hose) 20 hours a day for 2 weeks after surgery. They can be removed several times a day for laundering and for a bath. F. You may shower, no tub baths until cleared by your doctor. SPECIAL CARE INSTRUCTIONS: VERY IMPORTANT TO READ AND REVIEW A. There are a few signs you need to watch for after you are home. Call [facility] if you notice any of the followin. Increased severe knee pain. Some pain is expected especially when you exercise. 2. Increased swelling in your leg or knee; pain or swelling of the calf muscle in either lower leg. 3. Any fluid drainage from the incision. 4. Shortness of breath or chest pain. B. Please call [facility] at if you have any concerns or questions about your operation or recovery. The doctor or his nurse will return your call promptly. C. You must take antibiotics before dental work, bladder, bowel or other surgery. Your doctor will provide you with a permanent care to carry describing this precaution. IMPORTANT: * REMEMBER TO TAKE ASPIRIN, , TWICE DAILY FOR 4 WEEKS UNLESS OTHERWISE DIRECTED. THIS IS YOUR BLOOD THINNER. * HIGH RISK PATIENTS MAY BE PRESCRIBED A STRONGER BLOOD THINNER. THIS WILL BE PROVIDED AT DISCHARGE. * CALL IF INCREASED PAIN, REDNESS, DRAINAGE OR FEVER GREATER THAT 101. * WEAR SONDRA HOSE 20 HOURS PER DAY FOR 2 WEEKS. * YOU HAVE A JAEL wound Vac. IF INCISION IS LEAKING THROUGH DRESSING, CALL THE OFFICE . FOLLOW UP VISIT: If appointment is not already scheduled: Please call [facility] to make a follow-up appointment for 2 weeks after your surgery at . Prescriptions: New acetaminophen [Tylenol Extra Strength] 500 mg Tablet 1,000 mg PO Q8 30 Days Qty: 180 RF: 0 aspirin [Ecotrin Low Strength] 81 mg Tablet,Delayed Release (Dr/Ec) 81 mg PO BID 30 Days Qty: 60 RF: 0 celecoxib 200 mg capsule 200 mg PO BID 30 Days Qty: 60 RF: 0 multivitamin [Daily-Prosper] Tablet 1 tab PO QAM 30 Days Qty: 30 RF: 0 oxycodone 5 mg Tablet 5 - 10 mg PO Q4H PRN (Reason: Pain) Qty: 30 RF: 0 ondansetron HCl 8 mg tablet 8 mg PO Q8H 5 Days Qty: 20 RF: 0 cefadroxil 500 mg capsule 500 mg PO BID Qty: 28 RF: 1 Continued ferrous sulfate 325 mg (65 mg iron) Tablet 325 mg PO BID RF: 0 Discontinued acetaminophen [Tylenol Extra Strength] 500 mg Tablet 1,000 mg PO Q6H PRN (Reason: Pain) RF: 0 Stand-Alone Forms: [facility] Discharge Orders: Discharge Order (Routine); Ordered 03/03/19 Ordered By: Sarah Aleman Admission Data Admit Date/Time: 03/01/19 17:19 Attending Provider: Khai Dow Admit Provider: Khai Dow Primary Care Provider: Gerardo Sampson Service: Surgical Services Other Interventions: Discharge Summary Assessment (RN) Last Done: 03/03/19 12:56 DC Date/Time DO NOT enter until pt leaves facility: 03/03/19 13:11
== END 2019-03-03 13:11 | disposition home health service (06) | DRG 468 ==
LOC: ASU 08:58 → 3E 17:19